=== PATIENT | female | born 1960 | race Hispanic/Latino ===

== ENCOUNTER 2021-02-05 15:19 | Outpatient (CLI) | payer BC | END 2021-02-05 20:41 | disposition home or self-care (01) | LOC: RAD 15:19 | PROVIDERS: ATTEND Internal Medicine | DX: R51.9 Headache, unspecified (principal) ==

== ENCOUNTER 2021-11-17 15:26 | Outpatient (CLI) | payer BC, OTHER ==
[~2021-11-17] VITALS: Ht 162.6 cm; Wt 106.1 kg
[2021-11-17 21:27] LABS: PLATELET COUNT 194 K/uL (152-353)
[2021-11-17 21:42] LABS: POTASSIUM 3.5 mmol/L (3.6-5.2)
== END 2021-11-17 19:22 | disposition home or self-care (01) ==
LOC: INF 15:26
PROVIDERS: ATTEND Internal Medicine
DX: U07.1 COVID-19 (principal)
CPT/HCPCS: 36415; 36591; 80053; 85027; 96365; 96366; J3490